=== PATIENT | female | born 1935 | race Caucasian/White ===

== ENCOUNTER 2016-11-10 21:28 | Inpatient (IN) | payer OTHER, BC ==
[~2016-11-10] VITALS: Ht 175.3 cm; Wt 80.3 kg
--- NOTE | ~2016-11-10 | EKG ---
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
--- NOTE | ~2016-11-10 | H ---
[facility] [place] [address] HISTORY AND PHYSICAL Name: SUZETTE HERNANDEZ Room #: 419-P ADM IN M.R.#: [id number] Admission: 11/11/16 Attend Phys: Pako Marvin MD Discharge: Date of : 33 Report #: [id number] THIS REPORT FOR: //name// CC: Pako Stout DATE OF SERVICE: 11/11/2016 REASON FOR PRESENTATION: Diffuse pain. HISTORY OF PRESENT ILLNESS: This is an 81-year-old with past medical history of hypothyroidism, hypertension; coronary artery, disease status post stenting of one of her coronaries done at [facility]. She presented with constipation, diffuse musculoskeletal pain of 3 days' duration. She reported that she having from the waist all the way up. The pain alternates between the right side and the left side. No chest pain. No shortness of breath. She did admit to have constipation for the last 7 days. No reported fever or chills. No reported nausea or vomiting. She sees Dr. Stout for her primary medical issues and she had seen him actually few days ago. No change in the medications. No previous similar episodes. On presentation to the Emergency Room, the patient was found to have an interstitial infiltration on her chest x-ray and was admitted for further evaluation and management. PAST MEDICAL HISTORY: 1. Hypothyroidism. 2. Hypertension. 3. Coronary artery disease. 4. Status post pacemaker insertion. 5. Anxiety. 6. There is a mention of congestive heart failure, but I do not have her echo. She is also known to have coronary artery disease. 7. Status post AICD. 8. Appendectomy. ALLERGIES: ASPIRIN, IBUPROFEN, PENICILLIN. FAMILY HISTORY: No known coronary artery disease in the family. No cancers. No strokes. SOCIAL HISTORY: Quit smoking 35 years ago. No drug or alcohol abuse. HOME MEDICATIONS: 1. Aspirin 81 mg daily. 2. Lipitor 80 mg daily. 3. Carvedilol 6.25 mg daily. 4. Plavix 75 mg daily. [facility] [address] [place] [address] HISTORY AND PHYSICAL Name: SUZETTE HERNANDEZ Room #: 419-P [facility] IN M.R.#: [id number] Admission: 11/11/16 Attend Phys: Pako Marvin MD Discharge: Date of : 33 Report #: [id number] 5. Levothyroxine. REVIEW OF SYSTEMS: GENERAL: Significant for weakness. CARDIOVASCULAR: Significant for occasional palpitation. PULMONARY: Occasional dyspnea on exertion. GASTROINTESTINAL: As per the history of present illness. MUSCULOSKELETAL: As per the history of present illness. GENITOURINARY: No frequency, no urgency. PHYSICAL EXAMINATION: VITAL SIGNS: Pulse is 60, respiratory rate is 16. Temperature 36.9, blood pressure 118/58. HEAD AND NECK: No jugular venous distention, no bruit, no thyromegaly. CHEST: Decreased air entry bilaterally with some crackles. CARDIOVASCULAR: No rub detected. There is a left-sided pacemaker. ABDOMEN: Distended. LOWER EXTREMITIES: No edema. LABORATORY DATA: Reviewed. She has a mild anemia. She is hyponatremic. UA with trace blood. Chest x-ray with an AICD and increased interstitial opacity suggesting pulmonary edema. ASSESSMENT, IMPRESSION AND PLAN: 1. Generalized aches of unknown source. 2. Constipation. 3. Hypothyroidism. 4. Coronary artery disease. 5. Hypertension. 6. Status post automatic implantable cardioverter-defibrillator placement. 7. Chest x-ray suggestive of pulmonary edema. We will discontinue the IV fluids. 8. Blood cultures obtained. 9. Lasix IV. 10. Treat constipation. 11. Obtain an echo. 12. Deescalate the antibiotic in the next few days as I suspect that this is a major pulmonary edema. 13. Resume her home medications including all cardiac medications. 14. Suspect the major issues are elated to her constipation. <ELECTRONICALLY SIGNED> By: Jhony Pascual MD 11/11/16 1034 0834 0905 Jhony Pascual MD /nt
--- NOTE | ~2016-11-10 | 2DMMODE ---
[facility] [address] [place] [address] 2 D/M-MODE ECHOCARDIOGRAM Name: SUZETTE HERNANDEZ Room #: 419-P [facility] IN M.R.#: [id number] Admission: 11/11/16 Attend Phys: Sandra Suarez MD Discharge: Date of : 33 Date of Service: 11/13/16 1335 Report #: [id number] THIS REPORT FOR: //name// APPROVED REPORT Study performed: 11/13/2016 10:41:14 EXAM: Comprehensive 2D, Doppler, and color-flow Echocardiogram Patient Location: Bedside Room #: 419 Blood Pressure: 113/61 mmHg HR: 61 bpm Other Information Study Quality: Adequate Indications ICD: Dyspnea CAD Hypertension/HDD 2D Dimensions RVDd: 31.58 mm LVEF(%): 56.85 (>50%) IVSd: 10.23 (7-11mm) LVOT Diam: 18.67 (18-24mm) LVDd: 45.12 mm PWd: 10.56 (7-11mm) Ascending Ao: 31.01 (22-36mm) LVDs: 31.74 (25-40mm) Aortic Root: 30.01 mm IVC: 15.00 mm Neff's LVEF: 56.85 % Volumes Left Atrial Volume (Systole) Single Plane 4CH: 67.85 mL Single Plane 2CH: 104.26 mL LA ESV Index: 46.00 mL/m2 Aortic Valve AoV Peak Jason.: 2.53 m/s AO Peak Gr.: 25.69 mmHg LVOT Max P.02 mmHg AO Mean Gr.: 13.31 mmHg LVOT Mean P.89 mmHg AO V2 Mean: 1.69 m/s LVOT Max V: 1.23 m/s AO V2 VTI: 50.55 cm LVOT Mean V: 0.78 m/s [facility] [place] [place] [address] 2 D/M-MODE ECHOCARDIOGRAM Name: SUZETTE HERNANDEZ Room #: 419-P [facility] IN M.R.#: [id number] Admission: 11/11/16 Attend Phys: Sandra Suarez MD Discharge: Date of : 33 Date of Service: 11/13/16 1335 Report #: [id number] CONRAD (VTI): 1.33 cm2 LVOT V1 VTI: 24.50 cm CONRAD Vmax: 1.32 cm2 AI Vmax: 4.54 m/s SV (LVOT): 67.05 mL AI [place]: 2.30 m/s2 AI PHT: 574.66 ms Mitral Valve MV Peak Gr.: 13.17 mmHg MV Mean Gr.: 6.59 mmHg E/A Ratio: 1.1 MV Decel. Time: 625.65 ms MV E Max Jason.: 1.67 m/s MV A Jason.: 1.57 m/s MV Max Jason.: 1.81 m/s MV Mean Jason.: 1.22 m/s MV VTI: 751.42 mm MVA VTI: 89.23 mm2 MV PHT: 181.44 ms MVA (PHT): 1.22 cm2 IVRT: 119.95 ms Pulmonary Valve PV Peak Jason.: 0.92 m/s PV Peak Gr.: 3.36 mmHg NV End Vmax: 1.30 m/s Pulmonary Vein P Vein S: 31.9 m/s P Vein A: 22.80 m/s P Vein D: 18.4 m/s P Vein A Dur.: 120.0 msec Tricuspid Valve TR Peak Jason.: 2.36 m/s RAP Estimate: 5.00 mmHg TR Peak Gr.: 22.36 mmHg Left Ventricle The left ventricle is normal size. There is normal LV segmental wall motion. There is normal left ventricular wall thickness. The left ventricular systolic function is normal. The left ventricular ejection fraction is within the normal range. LVEF is 60-65%. Right Ventricle The right ventricle is normal size. The right ventricular systolic function is normal. Device lead is present in the right ventricle. Atria Left atrium is dilated. The right atrium size is normal Device lead is present in the right atrium. [address] [address] 2 D/M-MODE ECHOCARDIOGRAM Name: SUZETTE HERNANDEZ Room #: 419-P [facility] IN M.R.#: [id number] Admission: 11/11/16 Attend Phys: Sandra Suarez MD Discharge: Date of : 33 Date of Service: 11/13/16 1335 Report #: [id number] Aortic Valve Aortic valve is calcified. Mild to moderate aortic regurgitation. Mild aortic stenosis (Peak gradient 26, mean 13mm) Mitral Valve The mitral valve is normal in structure. There is mitral annular calcification. Mitral valve leaflets are calcified. Trace mitral regurgitation. Moderate mitral stenosis. (Peak ghgltoam32, mean 7mm Hg) Tricuspid Valve The tricuspid valve is normal in structure. There is trace tricuspid regurgitation. The right atrial pressure is estimated at 5 mmHg. There is no pulmonary hypertension. The estimated PAP was 27 mmHg. Pulmonic Valve The pulmonary valve is normal in structure. Trace pulmonic regurgitation. Great Vessels The aortic root is normal in size. IVC is normal in size and collapses >50% with inspiration. Pericardium No pericardial effusion. <Conclusion> The left ventricular ejection fraction is within the normal range. There is normal LV segmental wall motion. LVEF 60-65%. Left atrium is dilated. Aortic valve is calcified. Mild to moderate aortic regurgitation. Mild aortic stenosis (Peak gradient 26, mean 13mm) There is mitral annular calcification. Mitral valve leaflets are calcified. Moderate mitral stenosis. (Peak gradient 13, mean 7mm Hg) There is no pulmonary hypertension. The estimated PAP was 27 mmHg. No pericardial effusion. <ELECTRONICALLY SIGNED> By: Yvon Begum MD, [facility] 11/13/16 1335 34 Yvon Begum MD, FAC /INF
[~2016-11-10 21:28] MED LIST: APAP500 PO; PLAVIX 75 MG TA75 M1 PO; SYNTHROID100 MCG PO; TOPROL XL25 MG PO; ZOCOR 10 MG TAB10 MG PO
[2016-11-10 21:29] VITALS: BP 151/78
[2016-11-10 23:13] LABS: ABSOLUTE NEUTROPHILS 5.8 thou/uL (1.4-8.2); BASOPHILS 0.4 % (0.0-2.0); EOSINOPHILS 0.1 % (0.0-3.0); HEMATOCRIT 30.1 % (37.0-47.0); LYMPHOCYTES 13.8 % (24.0-44.0); MCH 28.5 pg (26.0-34.0); MCV 86.3 fL (80.0-100.0); MONOCYTES 10.8 % (1.0-8.0); PLATELET COUNT 205 thou/uL (150-400); POLYS 74.9 % (36.0-66.0); RBC 3.49 mil/uL (4.20-5.00); RDW 16.1 % (10.5-14.5); WBC 7.8 thou/uL (4.0-11.0)
[2016-11-10 23:15] LABS: MANUAL DIFF NO; URINE BILIRUBIN NEGATIVE (Negative); URINE BLOOD TRACE (Negative); URINE COLOR YELLOW; URINE GLUCOSE-RANDOM* NEGATIVE (Negative); URINE KETONES NEGATIVE (Negative); URINE LEUKOCYTES-REFLEX NEGATIVE (Negative); URINE PROTEIN (DIPSTICK) NEGATIVE (Negative); URINE SPECIFIC GRAVITY 1.025 (1.003-1.035); URINE UROBILINOGEN 0.2 E.U./dl (0.2-1.0)
[2016-11-10 23:21] LABS: ANION GAP 8 mmol/L (7-16); BUN 12 mg/dL (7-18); CALCIUM 8.6 mg/dL (8.5-10.1); CHLORIDE 100 mmol/L (98-107); CO2 24 mmol/L (21-32); CREATININE 0.9 mg/dL (0.6-1.0); GLUCOSE 104 mg/dL (74-106); POTASSIUM 3.8 mmol/L (3.5-5.1); SODIUM 132 mmol/L (136-145)
[2016-11-10 23:34] LABS: ALKALINE PHOSPHATASE 107 U/L (46-116); NT-PRO BRAIN NAT PEPTIDE 1357 pg/mL (<300); SGOT 18 U/L (15-37); SGPT 18 U/L (30-65); TOTAL BILIRUBIN 0.6 mg/dL (<0.1-1.0); TROPONIN-I < 0.04 ng/mL (<0.04-0.07)
[2016-11-11 01:42] VITALS: BP 106/69
[2016-11-11 02:10] VITALS: BP 118/58
[2016-11-11] MEDS ORDERED: ASPIR 8181 MG PO (03:37)
[2016-11-11] MEDS ORDERED: COREG6.25 MG PO (03:39)
[2016-11-11] MEDS ORDERED: PROTONIX40 M1 PO (03:40)
[2016-11-11] MEDS ORDERED: LIPITOR40 MG PO (03:48)
[2016-11-11 07:27] VITALS: BP 104/50
[2016-11-11 15:50] VITALS: BP 139/61
[2016-11-11 20:00] VITALS: BP 115/65
[2016-11-12 04:15] LABS: HEMATOCRIT 28.2 % (37.0-47.0); HEMOGLOBIN 9.3 gm/dL (12.0-15.0); MCH 28.6 pg (26.0-34.0); MCHC 32.9 g/dL (28.0-37.0); MCV 86.7 fL (80.0-100.0); RBC 3.25 mil/uL (4.20-5.00); RDW 16.2 % (10.5-14.5); WBC 4.6 thou/uL (4.0-11.0)
[2016-11-12 04:30] VITALS: BP 120/62
[2016-11-12 04:35] LABS: ALBUMIN 2.6 g/dL (3.4-5.0); CALCIUM 8.4 mg/dL (8.5-10.1); CREATININE 0.9 mg/dL (0.6-1.0); PHOSPHORUS 3.3 mg/dL (2.5-4.9); POTASSIUM 3.4 mmol/L (3.5-5.1)
[2016-11-12 07:22] VITALS: BP 111/60
[2016-11-12 16:12] VITALS: BP 120/55
[2016-11-12 20:00] VITALS: BP 125/65
[2016-11-13 04:00] VITALS: BP 151/55
[2016-11-13 05:42] LABS: HEMATOCRIT 29.7 % (37.0-47.0); HEMOGLOBIN 9.9 gm/dL (12.0-15.0); MCH 28.3 pg (26.0-34.0); MCHC 33.2 g/dL (28.0-37.0); MCV 85.3 fL (80.0-100.0); RBC 3.48 mil/uL (4.20-5.00); RDW 16.1 % (10.5-14.5); WBC 5.9 thou/uL (4.0-11.0)
[2016-11-13 06:08] LABS: ALBUMIN 2.7 g/dL (3.4-5.0); CALCIUM 8.5 mg/dL (8.5-10.1); CREATININE 0.9 mg/dL (0.6-1.0); POTASSIUM 3.8 mmol/L (3.5-5.1); TOTAL BILIRUBIN 0.3 mg/dL (<0.1-1.0); TOTAL PROTEIN 6.7 g/dL (6.4-8.2)
[2016-11-13 07:43] VITALS: BP 113/61
[2016-11-13 15:49] VITALS: BP 114/50
[2016-11-13 20:38] VITALS: BP 142/58
[2016-11-13 20:39] VITALS: BP 103/52
[2016-11-14 04:33] VITALS: BP 132/59
[2016-11-14 07:19] VITALS: BP 121/62
[2016-11-14 16:08] VITALS: BP 109/59
[2016-11-14 20:00] VITALS: BP 128/54
[2016-11-15 04:16] VITALS: BP 135/50
[2016-11-15 05:55] LABS: HEMATOCRIT 30.8 % (37.0-47.0); HEMOGLOBIN 10.4 gm/dL (12.0-15.0); MCH 28.7 pg (26.0-34.0); MCHC 33.8 g/dL (28.0-37.0); MCV 84.8 fL (80.0-100.0); RBC 3.63 mil/uL (4.20-5.00); RDW 15.9 % (10.5-14.5); WBC 5.6 thou/uL (4.0-11.0)
[2016-11-15 06:09] LABS: CREATININE 1.1 mg/dL (0.6-1.0); POTASSIUM 3.7 mmol/L (3.5-5.1)
[2016-11-15] MEDS ORDERED: LEVAQUIN 500 M500 M1 PO (11:09)
[2016-11-15 11:14] VITALS: BP 135/50
== END 2016-11-15 11:55 | disposition home or self-care (01) | DRG 193 ==
LOC: ER 21:28 → 4E 11-11 01:08 → EROBS 11-11 01:08 → 4E 11-11 01:46
PROVIDERS: Emergency Medicine; Family Medicine; Hospitalist
DX: J18.9 Pneumonia, unspecified organism (principal); I50.31 Acute diastolic (congestive) heart failure; E44.1 Mild protein-calorie malnutrition; E78.5 Hyperlipidemia, unspecified; E03.9 Hypothyroidism, unspecified; I25.10 Atherosclerotic heart disease of native coronary artery without angina pectoris; Z68.26 Body mass index [BMI] 26.0-26.9, adult; I50.9 Heart failure, unspecified; K59.00 Constipation, unspecified; F41.9 Anxiety disorder, unspecified; E87.6 Hypokalemia; I11.0 Hypertensive heart disease with heart failure; D64.9 Anemia, unspecified; Z60.2 Problems related to living alone; Z90.49 Acquired absence of other specified parts of digestive tract; Z88.6 Allergy status to analgesic agent; Z88.0 Allergy status to penicillin; Z95.5 Presence of coronary angioplasty implant and graft; Z95.810 Presence of automatic (implantable) cardiac defibrillator; Z87.891 Personal history of nicotine dependence; Z91.013 Allergy to seafood
CPT/HCPCS: 10183

== ENCOUNTER 2021-07-12 17:16 | Inpatient (IN) | payer OTHER, BC ==
[~2021-07-12] VITALS: Ht 172.7 cm; Wt 65.8 kg
--- NOTE | ~2021-07-12 | EMS ---
[address] [address] EMS Patient Care Report Name: SUZETTE HERNANDEZ Room #: 207-P ADM IN M.R.#: [id number] Admission: 07/12/21 Attend Phys: Eduardo Art MD Discharge: Date of : 33 Report #: [id number] THIS REPORT FOR: //name// Report Transmitted: 07/13/2021 10:26 EMS Care Summary [place], [place]/[facility] Incident [id number] @ 07/12/2021 16:43 Incident Location [address] [place] [address] Patient SUZETTE HERNANDEZ Female, 85 Years 1935 Patient Address [address] [place] [address] Patient History Pacemaker/AICD,Hyperlipidemia,Hypothyroidism, Patient Allergies Penicillin allergy,Other drug allergy,Shellfish allergy, Patient Medications Eliquis, Atorvastatin, Pantoprazole, Xanax, Carvedilol, Levothyroxine, Chief Complaint SOA Disposition Transported No Lights/[place] Dispatch Reason Heart Problems/AICD Transported To [facility] Narrative RESPONDED TO HEART PROBLEMS AT HOME. UPON ARRIVAL PT FOUND SITTING UPRIGHT IN CHAIR ALERT AND ORIENTED. P37 CREW HAD PT ON NRB BECAUSE THEY REPORT O2 SATS BEING AT 85% ROOM AIR. PT REPORTS SHORT OF BREATH HAPPENED WHILE VACCUUMING AND DENIES ANY RESPIRATORY HX. PT HAS PACEMAKER BUT DENIES CP. PT ALREADY TOOK [address] [place] [address] EMS Patient Care Report Name: SUZETTE HERNANDEZ Room #: 207-P ADM IN M.R.#: [id number] Admission: 07/12/21 Attend Phys: Eduardo Art MD Discharge: Date of : 33 Report #: [id number] NITRO ACTING INSTRUCTOR OF EMS. PT ASSISTED TO COT AND SEATBELTS APPLIED. VITALS, 3 LEAD, 12 LEAD AND IV OBTAINED. PT TRANSPORTED TO [facility] AND GIVEN 1 ALBUTEROL TREATMENT EN ROUTE FOR WHEEZING. PT REPORTS SOME RELIEF AND MAKES PRODUCTIVE COUGH. PT WAS TEAM LIFTED TO BED AND HANDRAILS UP. REPORT GIVEN TO NURSE. Initial Vitals @17:01P: 84, @17:00P: 84,SpO2: 97,[place] Suspected: false @17:01P: 87,R: 22,BP: 211/82,SpO2: 98, @17:07P: 81,R: 22,BP: 197/99,GCS: 15,CO: 1,SpO2: 98,Revised Trauma: 12, @16:59P: 77,R: 20,BP: 204/118,Pain: 0/10,GCS: 15,Glucose: 123,CO: 0,SpO2: 98,Revised Trauma: 12, Assessments @16:52MENTAL:Event Oriented,Person Oriented,Place Oriented,Time Oriented,SKIN:HEENT:Eyes: Right: Blind,Neck/Airway: No Abnormalities,LUNG SOUNDS:General: No Abnormalities,ABDOMEN:General: No Abnormalities,PELVIS//GI:No Abnormalities,EXTREMITIES:Left Arm: No Abnormalities,Right Arm: No Abnormalities,Left Leg: No Abnormalities,Right Leg: No Abnormalities,PULSE:Radial: 2+ Normal,NEURO:@17:02MENTAL:Place Oriented,Person Oriented,Event Oriented,Time Oriented,SKIN:HEENT:Neck/Airway: No Abnormalities,LUNG SOUNDS:General: No Abnormalities,Left Upper: No Abnormalities,Right Upper: No Abnormalities,Left Lower: No Abnormalities,Right Lower: No Abnormalities,ABDOMEN:General: No Abnormalities,Left Upper: No Abnormalities,Right Upper: No Abnormalities,Left Lower: No Abnormalities,Right Lower: No Abnormalities,PELVIS//GI:No Abnormalities,EXTREMITIES:Left Leg: Edema,Right Leg: Edema,Left Arm: No Abnormalities,Right Arm: No Abnormalities,PULSE:Radial: 2+ Normal,NEURO:No Abnormalities, Impression Acute Respiratory Distress (Dyspnea) Procedures @17:00 12-Lead ECG Response: UnchangedSucceeded @17:01 IV Therapy - Saline Lock 5cc (20 ga) Site: Antecubital-Left Response: UnchangedSucceeded @16:57 3-Lead ECG Response: UnchangedSucceeded @16:52 ALS Assessment Response: UnchangedSucceeded @17:03 Albuterol - 2.5 Milligrams (mg) - Nebulized Response: Improved @PTAOxygen FlowRate: 15 Device: Non Re-breather Mask (NRB) Succeeded Timeline ACTING INSTRUCTOR,Oxygen FlowRate: 15 Device: Non Re-breather Mask (NRB) Succeeded, 16:41,Call Received 16:41,Dispatch Notified [address] [address] EMS Patient Care Report Name: SUZETTE HERNANDEZ Room #: 207-P ADM IN M.R.#: [id number] Admission: 07/12/21 Attend Phys: Eduardo Art MD Discharge: Date of : 33 Report #: [id number] 16:43,Dispatched 16:44,En Route 16:50,On Scene 16:52,At Patient 16:52,ALS Assessment,Response: UnchangedSucceeded, 16:57,3-Lead ECG,Response: UnchangedSucceeded, 16:59,BP: 204/118 M,PULSE: 77,RR: 20 R,SPO2: 98 Ox,ETCO2: ,B,PAIN: 0,GCS: 15, 17:00,12-Lead ECG,Response: UnchangedSucceeded, 17:00,BP: / M,PULSE: 84,RR: R,SPO2: 97 Ox,ETCO2: ,BG: ,PAIN: ,GCS: , 17:01,IV Therapy - Saline Lock 5cc 20 ga Site: Antecubital-Left,Response: UnchangedSucceeded, 17:01,BP: 211/82 M,PULSE: 87,RR: 22 R,SPO2: 98 Ox,ETCO2: ,BG: ,PAIN: ,GCS: , 17:01,BP: / M,PULSE: 84,RR: R,SPO2: Ox,ETCO2: ,BG: ,PAIN: ,GCS: , 17:02,Depart Scene 17:03,Albuterol - 2.5 Milligrams (mg) - Nebulized,Response: Improved 17:07,BP: 197/99 M,PULSE: 81,RR: 22 R,SPO2: 98 Ox,ETCO2: ,BG: ,PAIN: ,GCS: 15, 17:12,At Destination 17:26,Call Closed Disclaimer v1.1 Copyright 2021 [employer] This EMS Care Summary contains data elements from the applicable legal record (which may be displayed differently). It is designed to provide pertinent information for the following purposes: continuity of care, clinical quality, and state data reporting. The complete legal record is available to ED staff and administrators of the receiving hospital in [facility]'s Patient Tracker. All data is provided "as is."
--- NOTE | ~2021-07-12 | EMS ---
[address] [address] EMS Patient Care Report Name: SUZETTE HERNANDEZ Room #: 207-P ADM IN M.R.#: [id number] Admission: 07/12/21 Attend Phys: Eduardo Art MD Discharge: Date of : 33 Report #: [id number] THIS REPORT FOR: //name// Report Transmitted: 07/13/2021 11:26 EMS Care Summary [place], [place]/[facility] Incident [id number] @ 07/12/2021 16:43 Incident Location [address] [place] [address] Patient SUZETTE HERNANDEZ Female, 85 Years 1935 Patient Address [address] [place] [address] Patient History Pacemaker/AICD,Hyperlipidemia,Hypothyroidism, Patient Allergies Penicillin allergy,Other drug allergy,Shellfish allergy, Patient Medications Levothyroxine, Carvedilol, Xanax, Pantoprazole, Atorvastatin, Eliquis, Chief Complaint SOA Disposition Transported No Lights/[place] Dispatch Reason Heart Problems/AICD Transported To [facility] Narrative RESPONDED TO HEART PROBLEMS AT HOME. UPON ARRIVAL PT FOUND SITTING UPRIGHT IN CHAIR ALERT AND ORIENTED. P37 CREW HAD PT ON NRB BECAUSE THEY REPORT O2 SATS BEING AT 85% ROOM AIR. PT REPORTS SHORT OF BREATH HAPPENED WHILE VACCUUMING AND DENIES ANY RESPIRATORY HX. PT HAS PACEMAKER BUT DENIES CP. 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 PT ASSISTED TO COT AND SEATBELTS APPLIED. VITALS, 3 LEAD, 12 LEAD AND IV OBTAINED. PT TRANSPORTED TO [facility] AND GIVEN 1 ALBUTEROL TREATMENT EN ROUTE FOR WHEEZING. PT REPORTS SOME RELIEF AND MAKES PRODUCTIVE COUGH. PT WAS TEAM LIFTED TO BED AND HANDRAILS UP. REPORT GIVEN TO NURSE. Initial Vitals @17:01P: 84, @17:00P: 84,SpO2: 97,[place] Suspected: false @17:01P: 87,R: 22,BP: 211/82,SpO2: 98, @17:07P: 81,R: 22,BP: 197/99,GCS: 15,CO: 1,SpO2: 98,Revised Trauma: 12, @16:59P: 77,R: 20,BP: 204/118,Pain: 0/10,GCS: 15,Glucose: 123,CO: 0,SpO2: 98,Revised Trauma: 12, Assessments @16:52MENTAL:Time Oriented,Place Oriented,Person Oriented,Event Oriented,SKIN:HEENT:Eyes: Right: Blind,Neck/Airway: No Abnormalities,LUNG SOUNDS:General: No Abnormalities,ABDOMEN:General: No Abnormalities,PELVIS//GI:No Abnormalities,EXTREMITIES:Left Arm: No Abnormalities,Right Arm: No Abnormalities,Left Leg: No Abnormalities,Right Leg: No Abnormalities,PULSE:Radial: 2+ Normal,NEURO:@17:02MENTAL:Place Oriented,Person Oriented,Event Oriented,Time Oriented,SKIN:HEENT:Neck/Airway: No Abnormalities,LUNG SOUNDS:General: No Abnormalities,Left Upper: No Abnormalities,Right Upper: No Abnormalities,Left Lower: No Abnormalities,Right Lower: No Abnormalities,ABDOMEN:General: No Abnormalities,Left Upper: No Abnormalities,Right Upper: No Abnormalities,Left Lower: No Abnormalities,Right Lower: No Abnormalities,PELVIS//GI:No Abnormalities,EXTREMITIES:Left Leg: Edema,Right Leg: Edema,Left Arm: No Abnormalities,Right Arm: No Abnormalities,PULSE:Radial: 2+ Normal,NEURO:No Abnormalities, Impression Acute Respiratory Distress (Dyspnea) Procedures @17:00 12-Lead ECG Response: UnchangedSucceeded @17:01 IV Therapy - Saline Lock 5cc (20 ga) Site: Antecubital-Left Response: UnchangedSucceeded @16:57 3-Lead ECG Response: UnchangedSucceeded @16:52 ALS Assessment Response: UnchangedSucceeded @17:03 Albuterol - 2.5 Milligrams (mg) - Nebulized Response: Improved @PTAOxygen FlowRate: 15 Device: Non Re-breather Mask (NRB) Succeeded Timeline BOTTLE WASHING MACHINE OPERATOR,Oxygen FlowRate: 15 Device: Non Re-breather Mask (NRB) Succeeded, 16:41,Call Received 16:41,Dispatch Notified [address] [address] EMS Patient Care Report Name: SUZETTE HERNANDEZ Room #: 207-P ADM IN M.R.#: [id number] Admission: 07/12/21 Attend Phys: Eduardo Art MD Discharge: Date of : 31 Report #: [id number] 16:43,Dispatched 16:44,En Route 16:50,On Scene 16:52,At Patient 16:52,ALS Assessment,Response: UnchangedSucceeded, 16:57,3-Lead ECG,Response: UnchangedSucceeded, 16:59,BP: 204/118 M,PULSE: 77,RR: 20 R,SPO2: 98 Ox,ETCO2: ,B,PAIN: 0,GCS: 15, 17:00,12-Lead ECG,Response: UnchangedSucceeded, 17:00,BP: / M,PULSE: 84,RR: R,SPO2: 97 Ox,ETCO2: ,BG: ,PAIN: ,GCS: , 17:01,IV Therapy - Saline Lock 5cc 20 ga Site: Antecubital-Left,Response: UnchangedSucceeded, 17:01,BP: 211/82 M,PULSE: 87,RR: 22 R,SPO2: 98 Ox,ETCO2: ,BG: ,PAIN: ,GCS: , 17:01,BP: / M,PULSE: 84,RR: R,SPO2: Ox,ETCO2: ,BG: ,PAIN: ,GCS: , 17:02,Depart Scene 17:03,Albuterol - 2.5 Milligrams (mg) - Nebulized,Response: Improved 17:07,BP: 197/99 M,PULSE: 81,RR: 22 R,SPO2: 98 Ox,ETCO2: ,BG: ,PAIN: ,GCS: 15, 17:12,At Destination 17:26,Call Closed Disclaimer v1.1 Copyright 2021 [email or web address] This EMS Care Summary contains data elements from the applicable legal record (which may be displayed differently). It is designed to provide pertinent information for the following purposes: continuity of care, clinical quality, and state data reporting. The complete legal record is available to ED staff and administrators of the receiving hospital in [facility]'s Patient Tracker. All data is provided "as is."
[~2021-07-12 17:16] MED LIST changes: +ASPIR 8181 MG PO; +COREG6.25 MG PO; +LEVAQUIN 500 M500 M1 PO; +LIPITOR40 MG PO; +PROTONIX40 M1 PO
[2021-07-12 17:21] VITALS: BP 196/95
[2021-07-12 17:56] LABS: ABSOLUTE NEUTROPHILS 4.9 thou/uL (1.4-8.2); BASOPHILS 0.5 % (0.0-2.0); CREATININE 0.6 mg/dL (0.6-1.0); EOSINOPHILS 0.6 % (0.0-3.0); HEMATOCRIT 35.2 % (37.0-47.0); HEMOGLOBIN 11.4 gm/dL (12.0-15.0); LYMPHOCYTES 22.2 % (24.0-44.0); MCH 28.5 pg (26.0-34.0); MCHC 32.4 g/dL (28.0-37.0); MCV 87.8 fL (80.0-100.0); MONOCYTES 8.5 % (1.0-8.0); PLATELET COUNT 202 thou/uL (150-400); POLYS 68.2 % (36.0-66.0); POTASSIUM 3.9 mmol/L (3.5-5.1); RBC 4.01 mil/uL (4.20-5.00); RDW 17.8 % (10.5-14.5); WBC 7.2 thou/uL (4.0-11.0)
[2021-07-12 21:12] LABS: HCO3 21.2 mmol/L (22.0-26.0); PCO2 43.6 mmHg (35.0-45.0); PO2 67.6 mmHg (80.0-100.0); sO2 91.7 % (92.0-98.0)
[2021-07-12 21:14] LABS: pH 7.304 (7.360-7.450)
[2021-07-12] MEDS ORDERED: XANAX 0.25 MG0.25 MG PO (22:32)
[2021-07-12] MEDS ORDERED: ELIQUIS5 MG PO (22:32)
[2021-07-13] VITALS (8 sets, daily range): BP systolic 108–160; BP diastolic 61–85
[2021-07-13 05:20] LABS: HEMATOCRIT 34.6 % (37.0-47.0); MCH 28.1 pg (26.0-34.0); MCHC 31.8 g/dL (28.0-37.0); MCV 88.5 fL (80.0-100.0); RBC 3.91 mil/uL (4.20-5.00); RDW 18.1 % (10.5-14.5); WBC 5.1 thou/uL (4.0-11.0)
[2021-07-13 06:28] LABS: ALBUMIN 3.1 g/dL (3.4-5.0); ANION GAP 9 mmol/L (7-16); BUN 13 mg/dL (7-18); CALCIUM 8.7 mg/dL (8.5-10.1); CHLORIDE 105 mmol/L (98-107); CHOLESTEROL 134 mg/dL (<200); CO2 28 mmol/L (21-32); CREATININE 0.7 mg/dL (0.6-1.0); GLUCOSE 88 mg/dL (74-106); HDL CHOLESTEROL 60 mg/dL (>40); LDL CHOLESTEROL 59 mg/dL (<100); POTASSIUM 3.7 mmol/L (3.5-5.1); SGOT 26 U/L (15-37); SGPT 26 U/L (30-65); SODIUM 142 mmol/L (136-145); TC:HDL 2.2 Ratio (Not establshd); TOTAL BILIRUBIN 0.5 mg/dL (0.2-1.0); TRIGLYCERIDE 75 mg/dL (<150); VLDL 15 mg/dL (<40)
--- NOTE | 2021-07-13 08:10 | EKG ---
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 : 1935 Requested By: Parth Laurent Order Number: [id number] MD: Yvon Begum Measurements Intervals Fay Rate: 76 P: -39 IA: 199 QRS: -52 QRSD: 175 T: -6 QT: 570 QTc: 642 Interpretive Statements Atrial-sensed ventricular-paced complexes No further analysis attempted due to paced rhythm Baseline wander in lead(s) V5 Compared to ECG 11/10/2016 21:57:18 Pacing is now present Electronically Signed On 07-13-2021 8:10:36 COMPLAINT SPECIALIST by Yvon Begum [email or web address] <ELECTRONICALLY SIGNED> By: Yvon Begum MD, [facility] 07/13/21 0810 1819 1819 Yvon Begum MD, [facility] /EPI
--- NOTE | 2021-07-13 09:31 | 2DMMODE ---
[facility] [place] [address] 2 D/M-MODE ECHOCARDIOGRAM Name: SUZETTE HERNANDEZ Room #: 207-P ADM IN M.R.#: [id number] Admission: 07/12/21 Attend Phys: Eduardo Art MD Discharge: Date of : 31 Report #: [id number] THIS REPORT FOR: cc: Vivek Stout MD, Rene P. MD Lundgren,Yvon Clement MD [facility] ~ APPROVED REPORT Study performed: 07/13/2021 08:28:11 EXAM: Comprehensive 2D, Doppler, and color-flow Echocardiogram Patient Location: Bedside Status: routine BSA: 1.87 HR: 63 bpm BP: 145/84 mmHg Rhythm: Pacemaker Other Information Study Quality: Good Indications Dyspnea. Leg swelling. Hx: MA, PPM, Afib, CVA. 2D Dimensions RVDd: 33.82 mm IVSd: 11.86 (7-11mm) LVOT Diam: 20.47 (18-24mm) LVDd: 43.63 mm PWd: 9.09 (7-11mm) LVDs: 33.08 (25-40mm) Left Atrium: 42.02 (27-40mm) Aortic Root: 32.37 mm Volumes Left Atrial Volume (Systole) Single Plane 4CH: 77.96 mL Single Plane 2CH: 99.36 mL LA ESV Index: 50.00 mL/m2 Aortic Valve AoV Peak Jason.: 3.44 m/s AO Peak Gr.: 47.30 mmHg LVOT Max P.22 mmHg AO Mean Gr.: 24.92 mmHg [facility] [address] [place] [address] 2 D/M-MODE ECHOCARDIOGRAM Name: SUZETTE HERNANDEZ Room #: 207-P [facility] IN .R.#: [id number] Admission: 07/12/21 Attend Phys: Eduardo Art MD Discharge: Date of : 31 Report #: [id number] AO V2 Mean: 2.39 m/s LVOT Max V: 1.43 m/s AO V2 VTI: 72.62 cm CONRAD Vmax: 1.37 cm2 AI Vmax: 4.49 m/s AI [place]: 2.63 m/s2 AI PHT: 495.16 ms Mitral Valve MV Decel. Time: 378.70 ms MV PHT: 109.82 ms Pulmonary Valve PV Peak Jason.: 1.15 m/s PV Peak Gr.: 5.30 mmHg Tricuspid Valve TR Peak Jason.: 2.65 m/s RAP Estimate: 5.00 mmHg TR Peak Gr.: 28.01 mmHg PA Pressure: 33.00 mmHg Left Ventricle The left ventricle is normal size. There is normal LV segmental wall motion. Concentric left ventricular hypertrophy. Left ventricular systolic function is normal. LVEF is 55-60%. Not technically sufficient to allow evaluation of the LV diastolic function. Right Ventricle The right ventricle is normal size. The right ventricular systolic function is normal. Pacemaker lead is present in the right ventricle. Atria Left atrium is severely dilated. The right atrium size is normal. Aortic Valve Aortic valve is moderately calcified, moderately stenotic Moderate aortic regurgitation. Calculated aortic valve area is 1.4 cm2 (Peak gradient of 47 mmHg, mean pressure gradient of 25 mmHg). Mitral Valve Heavily calcfied annulus with restricted leaflet motion. Severe mitral stenosis (PPG of 22mmHg; MPG 12mmHg). Mild to moderate mitral regurgitation. Tricuspid Valve The tricuspid valve is normal in structure. Trace to mild tricuspid regurgitation. Estimated pulmonary artery pressure of [facility] [address] [place] [address] 2 D/M-MODE ECHOCARDIOGRAM Name: SUZETTE HERNANDEZ Room #: 207-P ADM IN M.R.#: [id number] Admission: 07/12/21 Attend Phys: Eduardo Art MD Discharge: Date of : 31 Report #: [id number] 35mmHg. Pulmonic Valve The pulmonary valve is normal in structure. Trace pulmonic regurgitation. Great Vessels The aortic root is normal in size. Ascending aorta is not well visualized. IVC is normal in size and collapses >50% with inspiration. Pericardium There is no pericardial effusion. Bilateral pleural effusions noted. <Conclusion> Left ventricular systolic function is normal. Concentric left ventricular hypertrophy. There is normal LV segmental wall motion. LVEF is 55-60%. Left atrium is severely dilated. Aortic valve is moderately calcified, moderately stenotic. Moderate aortic insufficiency Calculated aortic valve area is 1.4 cm2 (Peak gradient of 47 mmHg, mean pressure gradient of 25 mmHg). Heavily calcfied annulus with restricted leaflet motion. Severe mitral stenosis (PPG of 22mmHg; MPG 12mmHg). Mild to moderate mitral regurgitation. Trace to mild tricuspid regurgitation. Estimated pulmonary artery pressure of 35mmHg. Bilateral pleural effusions noted. No pericardial effusion. <ELECTRONICALLY SIGNED> By: Yvon Begum MD, FACC 07/13/21929 9 9 Yvon Begum MD, FACC /INF
--- NOTE | 2021-07-13 10:10 | NUR ---
PATIENT ARRIVED TO UNIT PRIOR TO SHIFT CHANGE. REPORT RECEIVED FROM OFF GOING RN. OFF GOING NURSE STATED PATIENT JUST ARRIVED FROM ER. PATIENT FOUND RESTING IN BED WITH DAUGHTER AT BEDSIDE. NASAL CANNULA AT 4 LPM. PATIENT DENIES ANY PAIN, NAUSEA, OR ANY OTHER COMPLAINTS.
--- NOTE | 2021-07-13 12:21 | NUR ---
PATIENT ADMITTED FOR MULTIFOCAL PNEUMONIA, ACUTE HYPOXIC RESP FAILURE. CHART REVIEWED AND DISCUSSED WITH CARE TEAM. CM MET WITH PT THIS DAY. PTS DAUGHTER HEATHER ALSO AT BEDSIDE. CM ROLE INTRODUCED. PT REPORTS SHE LIVES AT HOME ALONE. SHE IS INDEPENDENT WITH ADLS AND MOBILITY BUT USES A CANE OCCASIONALLY. SHE REPORTS HER DAUGHTER HELPS WITH GETTING GROCERIES. PT AND DAUGHTER DENIES PT HAVING HH SERVICES IN THE PAST. PT DOES REPORT SHE HAS GONE TO OUTPT THERAPY THROUGH [facility] FOLLOWING SCIATIC NERVE DAMAGE. SHE ALSO REPORTS [facility] FOLLOWING PACEMAKER PLACEMENT. PT GOAL IS TO RETURN HOME ONCE MEDICALLY STABLE TO DISCHARGE. AWAITING THERAPY RECOMMENDATIONS FOR FURTHER DC PLANNING. CM WILL CONTINUE TO FOLLOW.
--- NOTE | 2021-07-13 17:42 | NUR ---
PHYSICAL THERAPY WORKED WITH PATIENT TODAY. STATED PATIENT IS SLIGHTLY UNSTEADY ON THEIR FEET AND WILL NEED A ONE PERSON ASSIST TO AMBULATE. PATIENT DID NOT HAVE ANY COMPLAINTS THROUGHOUT THE SHIFT. DENIED PAIN.
[2021-07-14 02:32] LABS: HEMATOCRIT 32.2 % (37.0-47.0); HEMOGLOBIN 10.1 gm/dL (12.0-15.0); MCHC 31.5 g/dL (28.0-37.0); MCV 88.9 fL (80.0-100.0); RBC 3.62 mil/uL (4.20-5.00); RDW 18.3 % (10.5-14.5); WBC 5.2 thou/uL (4.0-11.0)
[2021-07-14 03:22] LABS: CALCIUM 8.8 mg/dL (8.5-10.1); CREATININE 0.8 mg/dL (0.6-1.0)
[2021-07-14 04:04] VITALS: BP 138/72
[2021-07-14 07:45] VITALS: BP 153/76
[2021-07-14] MEDS ORDERED: DEMADEX20 MG PO (07:54)
[2021-07-14] MEDS ORDERED: K-DUR10 MEQ PO (07:54)
[2021-07-14 12:00] VITALS: BP 100/51
--- NOTE | 2021-07-14 12:33 | NUR ---
CM MET WITH PT THIS DAY. PTS DAUGHTER AT BEDSIDE. PT AGREEABLE TO [facility]IL[facility] BENIT[facility] ONCE MEDICALLY STABLE TO DC.
[2021-07-14 16:00] VITALS: BP 141/59
--- NOTE | 2021-07-14 17:04 | NUR ---
ASSUMED PATIENT CARE THIS MORNING. PATIENT APPROPRIATELY COMMUNICATED ALL NEEDS TO STAFF. PATIENT HAD AN OXYGEN TRIAL THIS MORNING AND AFTERNOON. PATIENT WAS 89% WHILE LAYING IN THE BED AND IN THE LOW 90'S DURING A FULL CONVERSATION. PATIENTS OXYGEN WAS REDUCED TO 1LPM AND IS TOLERATING IT WELL. PATIENT AMBULATED TO THE BATHROOM AND VOIDED WITHOUT ISSUE. PATIENT ONLY REQUIRED STANDBY ASSISTANCE FOR SAFETY.
[2021-07-14 20:20] VITALS: BP 131/66
[2021-07-14 21:43] LABS: ABSOLUTE NEUTROPHILS 3.4 thou/uL (1.4-8.2); BASOPHILS 0.8 % (0.0-2.0); HEMATOCRIT 32.1 % (37.0-47.0); HEMOGLOBIN 10.4 gm/dL (12.0-15.0); LYMPHOCYTES 25.5 % (24.0-44.0); MCH 28.7 pg (26.0-34.0); MCHC 32.4 g/dL (28.0-37.0); MCV 88.7 fL (80.0-100.0); MONOCYTES 13.4 % (1.0-8.0); PLATELET COUNT 175 thou/uL (150-400); POLYS 59.3 % (36.0-66.0); RBC 3.62 mil/uL (4.20-5.00); WBC 5.8 thou/uL (4.0-11.0)
[2021-07-15 03:54] LABS: CALCIUM 8.8 mg/dL (8.5-10.1); POTASSIUM 3.8 mmol/L (3.5-5.1)
[2021-07-15 04:13] LABS: HEMATOCRIT 30.4 % (37.0-47.0); HEMOGLOBIN 10.6 gm/dL (12.0-15.0); MCH 30.5 pg (26.0-34.0); MCHC 34.8 g/dL (28.0-37.0); MCV 87.5 fL (80.0-100.0); RBC 3.47 mil/uL (4.20-5.00); RDW 17.4 % (10.5-14.5); WBC 5.6 thou/uL (4.0-11.0)
[2021-07-15 04:59] VITALS: BP 115/64
[2021-07-15 07:45] VITALS: BP 121/70
--- NOTE | 2021-07-15 07:45 | NUR ---
SLEPT MOST OF SHIFT AFTER HS MEDICATION. UP TO COMODE WITH STANDBY ASSIST NEEDED. DENIES ANY COMPLAINTS. CONTINUE TO ASSESS
[2021-07-15 09:05] VITALS: BP 115/64
[2021-07-15 11:45] VITALS: BP 131/72
[2021-07-15] MEDS ORDERED: CEFDINIR300 MG PO (12:39)
[2021-07-15 12:48] VITALS: BP 115/64
== END 2021-07-15 14:45 | disposition home health service (06) | DRG 871 ==
LOC: ER 17:16 → 2N 20:59 → EROBS 20:59 → 2N 07-13 06:31
PROVIDERS: Hospitalist; Nurse Practitioner Family; Student in an Organized Health Care Education/Training Program; ADMIT Internal Medicine; ATTEND Internal Medicine
PROC: 4B02XSZ Measurement of Cardiac Pacemaker, External Approach (ICD-10-PCS; principal; 2021-07-13)
DX: A41.9 Sepsis, unspecified organism (principal); J18.9 Pneumonia, unspecified organism; J96.01 Acute respiratory failure with hypoxia; I50.33 Acute on chronic diastolic (congestive) heart failure; I11.0 Hypertensive heart disease with heart failure; I25.10 Atherosclerotic heart disease of native coronary artery without angina pectoris; Z20.822 Contact with and (suspected) exposure to COVID-19; E78.00 Pure hypercholesterolemia, unspecified; E78.5 Hyperlipidemia, unspecified; F41.9 Anxiety disorder, unspecified; E03.9 Hypothyroidism, unspecified; H54.62 Unqualified visual loss, left eye, normal vision right eye; I48.91 Unspecified atrial fibrillation; K21.9 Gastro-esophageal reflux disease without esophagitis; Z60.2 Problems related to living alone; I49.5 Sick sinus syndrome; I05.0 Rheumatic mitral stenosis; R53.81 Other malaise; G47.00 Insomnia, unspecified; R63.4 Abnormal weight loss; Z90.49 Acquired absence of other specified parts of digestive tract; Z88.6 Allergy status to analgesic agent; Z88.0 Allergy status to penicillin; Z91.013 Allergy to seafood; I25.2 Old myocardial infarction; Z95.0 Presence of cardiac pacemaker; Z86.73 Personal history of transient ischemic attack (TIA), and cerebral infarction without residual deficits; Z83.3 Family history of diabetes mellitus; Z82.49 Family history of ischemic heart disease and other diseases of the circulatory system; Z88.8 Allergy status to other drugs, medicaments and biological substances; Z91.041 Radiographic dye allergy status; Z79.82 Long term (current) use of aspirin; Z79.899 Other long term (current) drug therapy; Z87.891 Personal history of nicotine dependence; Z68.22 Body mass index [BMI] 22.0-22.9, adult
CPT/HCPCS: 10081

== ENCOUNTER 2021-08-23 11:03 | Inpatient (IN) | payer OTHER, BC ==
[~2021-08-23] VITALS: Ht 172.7 cm; Wt 68.3 kg
[~2021-08-23 11:03] MED LIST changes: +CEFDINIR300 MG PO; +DEMADEX20 MG PO; +ELIQUIS5 MG PO; +K-DUR10 MEQ PO; +XANAX 0.25 MG0.25 MG PO
[2021-08-23 11:05] VITALS: BP 138/75
[2021-08-23 11:41] LABS: ABSOLUTE NEUTROPHILS 5.2 thou/uL (1.4-8.2); BASOPHILS 0.8 % (0.0-2.0); EOSINOPHILS 0.1 % (0.0-3.0); HEMATOCRIT 30.1 % (37.0-47.0); HEMOGLOBIN 9.9 gm/dL (12.0-15.0); MCH 28.1 pg (26.0-34.0); MONOCYTES 10.5 % (1.0-8.0); PLATELET COUNT 278 thou/uL (150-400); POLYS 70.6 % (36.0-66.0); RBC 3.54 mil/uL (4.20-5.00); RDW 17.9 % (10.5-14.5); WBC 7.3 thou/uL (4.0-11.0)
[2021-08-23 11:44] LABS: CALCIUM 8.7 mg/dL (8.5-10.1); CREATININE 0.8 mg/dL (0.6-1.0); POTASSIUM 3.6 mmol/L (3.5-5.1)
--- NOTE | 2021-08-23 11:44 | NUR ---
PT TO ED FOR C/O SOA ONSET LAST PM. REPORTS ORTHOPNEA. PT WAS SEEN HERE IN JULY FOR DX OF PNA AND CHF. HOME HEALTH NURSE NOTED PT TO HAVE 3LB WT GAIN OVERNIGHT. PT 94% RA.
[2021-08-23 11:55] LABS: MAGNESIUM 1.8 mg/dL (1.8-2.4); TOTAL BILIRUBIN 1.1 mg/dL (0.2-1.0); TOTAL PROTEIN 6.9 g/dL (6.4-8.2)
[2021-08-23 12:52] LABS: URINE BILIRUBIN NEGATIVE (Negative); URINE BLOOD NEGATIVE (Negative); URINE CLARITY CLEAR; URINE COLOR YELLOW; URINE GLUCOSE-RANDOM* NEGATIVE (Negative); URINE KETONES NEGATIVE (Negative); URINE LEUKOCYTES-REFLEX NEGATIVE (Negative); URINE NITRITE-REFLEX NEGATIVE (Negative); URINE PROTEIN (DIPSTICK) NEGATIVE (Negative); URINE UROBILINOGEN 0.2 E.U./dl (0.2-1.0)
[2021-08-23 15:32] VITALS: BP 122/60
--- NOTE | 2021-08-23 15:33 | NUR ---
PT REPORTS FEELING ANXIOUS DUE TO BEING STUCK IN ED ROOM. DR LAURENT PAGED AND ORDERS GIVEN. PT TAKES PRN XANAX AT HOME.
--- NOTE | 2021-08-23 16:21 | EKG ---
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
[2021-08-23 16:30] VITALS: BP 101/53
[2021-08-23 19:40] VITALS: BP 124/73
[2021-08-24] VITALS (7 sets, daily range): BP systolic 104–151; BP diastolic 50–70
--- NOTE | 2021-08-24 03:52 | NUR ---
RECEIVED PATIENT AT 1900H.ASSESMENT DONE CHARTED.MEDS GIVEN PER AUG.ALL NEEDS ATTENDED.TO CONTINOUSLY MONITOR.
[2021-08-24 04:23] LABS: CALCIUM 9.1 mg/dL (8.5-10.1); CREATININE 1.1 mg/dL (0.6-1.0); POTASSIUM 3.2 mmol/L (3.5-5.1)
--- NOTE | 2021-08-24 10:47 | NUR ---
PATIENT ADMITTED FOR CHF EXACERBATION, SOA, ELEVATED TROPONIN. CHART REVIEWED AND DISCUSSED WITH CARE TEAM. CM MET WITH PT THIS DAY. CM ROLE INTRODUCED. PT REPORTS SHE LIVES AT HOME ALONE. PT REPORTS SHE HAS A CANE HOWEVER ONLY USES IT OCCASIONALLY AND DOES NOT USE A W/C OR WALKER. PT REPORTS SHE STAIR IN THE HOME BUT DOES NOT USE THEM. HER DAUGHTER DOES HER LAUNDRY FOR HER SO SHE DOESNT HAVE TO USE THE STAIRS. PT REPORTS SHE DOES HER OWN DRESSING, TOILETING, AND SHOWERING. PT REPORT HER DAUGHTER LIVES NEXT TO HERHEATHER AT [phone]. PT DOES HAVE PT/OT ORDERS. WILL AWAIT FOR THERAPY RECOMMENDATIONS. PT REPORTS HER GOAL IS TO RETURN HOME WITH [facility]. THEY CAN ACCEPT. IT IS ANTICIPATED PT WILL DC TOMORROW. CM FOLLOWING FOR DC PLANNING.
--- NOTE | 2021-08-24 15:36 | NUR ---
PT COMMUNICATED TO STAFF THEY HAVE BEEN CONSTIPATED. PT TAKING PO MEDICATION AND GIVEN WARM PRUNE JUICE. PT HAD A BM THIS AFTERNOON.
--- NOTE | 2021-08-24 17:05 | NUR ---
I have reviewed the documentation by ANA MARIA AREVALO from 08/24/21 to 08/24/21 and I concur with it. CA DENNIS, PT, DPT
--- NOTE | 2021-08-24 17:17 | NUR ---
ASSUMED PT CARE THIS MORNING. PT A&OX4 AND COMMUNICATING NEEDS TO STAFF APPROPRIATELY. PT DENIED PAIN THIS SHIFT BUT DID HAVE SOME ANXIETY THAT WAS WELL MANAGED WITH PO MEDICATION. PT AMBULATED WITH STANDBY ASSISTANCE FROM STAFF AND CALLED APPROPRIATELY. PT VOIDED WITHOUT ANY ISSUES AND WAS ABLE TO HAVE A BM THIS AFTERNOON AFTER MEDICATION AND PRUNE JUICE. PT HAD A GOOD APPETITE. VITAL SIGNS STABLE.
--- NOTE | 2021-08-25 03:50 | NUR ---
RECEIVED PATIENT AT 1900H.ASSSESSMENT DONE CHARTED, MEDS GIVEN PER AUG.FALL PREVENTION MEASURES OBSERVED.ALL NEEDS ATTENDED.TO CONTINOUSLY MONITOR.
[2021-08-25 04:35] VITALS: BP 119/59
[2021-08-25 04:48] LABS: HEMATOCRIT 28.2 % (37.0-47.0); HEMOGLOBIN 9.3 gm/dL (12.0-15.0); MCH 28.1 pg (26.0-34.0); MCV 85.4 fL (80.0-100.0); RBC 3.31 mil/uL (4.20-5.00); RDW 17.3 % (10.5-14.5); WBC 6.8 thou/uL (4.0-11.0)
[2021-08-25 05:22] LABS: CALCIUM 8.4 mg/dL (8.5-10.1); CREATININE 0.9 mg/dL (0.6-1.0); POTASSIUM 3.5 mmol/L (3.5-5.1)
[2021-08-25] MEDS ORDERED: DEMADEX20 MG PO (07:40)
[2021-08-25] MEDS ORDERED: K-DUR10 MEQ PO (07:40)
[2021-08-25 09:53] VITALS: BP 120/62
[2021-08-25 10:43] VITALS: BP 120/62
[2021-08-25 11:19] VITALS: BP 120/62
--- NOTE | 2021-08-25 12:12 | NUR ---
Pt dcing home today via dtr's car. Dtr Radha and pt updated on meals on wheels options, private duty and housekeeping recommendations. [facility] HH to follow. Orders faxed.
== END 2021-08-25 12:09 | disposition home health service (06) | DRG 291 ==
LOC: ER 11:03 → EROBS 15:10 → 2N 15:10
PROVIDERS: Student in an Organized Health Care Education/Training Program; ADMIT Hospitalist; ATTEND Hospitalist
DX: I11.0 Hypertensive heart disease with heart failure (principal); I50.33 Acute on chronic diastolic (congestive) heart failure; H34.11 Central retinal artery occlusion, right eye; R77.8 Other specified abnormalities of plasma proteins; Z20.822 Contact with and (suspected) exposure to COVID-19; F41.9 Anxiety disorder, unspecified; I25.10 Atherosclerotic heart disease of native coronary artery without angina pectoris; E03.9 Hypothyroidism, unspecified; K21.9 Gastro-esophageal reflux disease without esophagitis; I49.5 Sick sinus syndrome; M35.00 Sjogren syndrome, unspecified; E87.6 Hypokalemia; I05.0 Rheumatic mitral stenosis; K59.00 Constipation, unspecified; I48.0 Paroxysmal atrial fibrillation; R53.81 Other malaise; R63.4 Abnormal weight loss; F32.A Depression, unspecified; H54.62 Unqualified visual loss, left eye, normal vision right eye; E78.5 Hyperlipidemia, unspecified; I25.2 Old myocardial infarction; Z86.73 Personal history of transient ischemic attack (TIA), and cerebral infarction without residual deficits; Z90.49 Acquired absence of other specified parts of digestive tract; Z95.0 Presence of cardiac pacemaker; Z79.899 Other long term (current) drug therapy; Z79.01 Long term (current) use of anticoagulants; Z79.82 Long term (current) use of aspirin; Z88.8 Allergy status to other drugs, medicaments and biological substances; Z88.6 Allergy status to analgesic agent; Z91.041 Radiographic dye allergy status; Z88.0 Allergy status to penicillin; Z91.013 Allergy to seafood; Z87.891 Personal history of nicotine dependence; Z95.5 Presence of coronary angioplasty implant and graft; Z68.22 Body mass index [BMI] 22.0-22.9, adult
CPT/HCPCS: 10081; 10194